=== PATIENT | male | born 1965 | race Caucasian/White ===

== ENCOUNTER 2017-09-06 23:50 | Emergency (ER) | payer SELFPAY ==
[~2017-09-06] VITALS: Ht 165.1 cm; Wt 67.0 kg
[~2017-09-06 23:50] MED LIST: BACT800T5 PO; CLIN1CAP5 PO; DICL75 PO
[2017-09-06 23:52] VITALS: BP 153/86; PULSE 104; RESP 14; TEMP 98.2; O2SAT 95
[2017-09-07] MEDS ORDERED: SODIUM CHLOR 0.9% 1000 ML INJ 1,000 ML IV ONE
--- NOTE | 2017-09-07 00:19 | RADRPT ---
EXAM DATE/TIME: 09/06/2017 23:57 [place] COMPARISON: No previous studies available for comparison. INDICATIONS : Trauma, hit head. RADIATION DOSE: 56.35 CTDIvol (mGy) MEDICAL HISTORY : None SURGICAL HISTORY : None. ENCOUNTER: Initial ACUITY: 1 day PAIN SCALE: 8/10 LOCATION: cranial TECHNIQUE: Multiple contiguous axial images were obtained of the head. Using automated exposure control and adj ustment of the mA and/or kV according to patient size, radiation dose was kept as low as reasonably a chievable to obtain optimal diagnostic quality images. DICOM format image data is available electro nically for review and comparison. FINDINGS: CEREBRUM: The ventricles are normal for age. No evidence of midline shift, mass lesion, hemorrhage or acute in farction. No extra-axial fluid collections are seen. POSTERIOR FOSSA: The cerebellum and brainstem are intact. The 4th ventricle is midline. The cerebellopontine angle i s unremarkable. EXTRACRANIAL: The visualized portion of the orbits is intact. SKULL: The calvaria is intact. No evidence of skull fracture. CONCLUSION: Normal examination. Martell De León Jr., MD on September 07, 2017 at 0:16 Board Certified Radiologist. This report was verified electronically.
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
== END 2017-09-07 08:17 | disposition home or self-care (01) ==
LOC: NEPD 23:50
DX: F10.920 Alcohol use, unspecified with intoxication, uncomplicated (principal); S00.03XA Contusion of scalp, initial encounter; S50.811A Abrasion of right forearm, initial encounter; S90.512A Abrasion, left ankle, initial encounter; F17.200 Nicotine dependence, unspecified, uncomplicated; W19.XXXA Unspecified fall, initial encounter
CPT/HCPCS: 70450; 80307; 99284

== ENCOUNTER 2018-02-08 16:41 | Emergency (ER) | payer SELFPAY ==
[~2018-02-08] VITALS: Ht 175.3 cm; Wt 68.0 kg
[~2018-02-08 16:41] MED LIST changes: -CLIN1CAP5 PO; -DICL75 PO
[2018-02-08 16:44] VITALS: BP 133/87; PULSE 86; RESP 18; TEMP 97.8; O2SAT 98
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
== END 2018-02-08 17:01 | disposition left against medical advice (07) ==
LOC: PHED 16:41
DX: S01.01XA Laceration without foreign body of scalp, initial encounter (principal); F17.200 Nicotine dependence, unspecified, uncomplicated; V19.3XXA Pedal cyclist (driver) (passenger) injured in unspecified nontraffic accident, initial encounter; Y93.55 Activity, bike riding; Z53.29 Procedure and treatment not carried out because of patient's decision for other reasons
CPT/HCPCS: 99281